=== PATIENT | female | born 1975 | race Hispanic/Latino ===

== ENCOUNTER 2023-08-14 15:59 | Emergency (ER) | payer OTHER ==
[~2023-08-14] VITALS: Ht 167.6 cm; Wt 150.2 kg
[2023-08-14] MEDS ORDERED: BACI500O8 TOP (20:11)
[2023-08-14] MEDS ORDERED: AMOX875T2 PO (20:11)
[2023-08-14 20:23] VITALS: BP 145/66; TEMP 98; O2SAT 96
[2023-08-14] MEDS: AUGMENTIN 875 MG TAB PO ONE (20:23)
== END 2023-08-14 20:27 | disposition home or self-care (01) ==
LOC: M ED 15:59
DX: H60.11 Cellulitis of right external ear (principal); H66.91 Otitis media, unspecified, right ear

== ENCOUNTER 2023-10-25 10:35 | Emergency (ER) | payer OTHER ==
[~2023-10-25] VITALS: Ht 170.2 cm; Wt 151.0 kg
[~2023-10-25 10:35] MED LIST: AMOX875T2 PO; BACI500O8 TOP
[2023-10-25 10:36] VITALS: BP 136/72; TEMP 97.4; O2SAT 97
[2023-10-25] MEDS: CYCLOBENZAPRINE 10MG TABLET PO ONE (11:42)
[2023-10-25] MEDS: ACETAMINOPHEN 500 MG TAB PO ONE (11:43)
== END 2023-10-25 11:49 | disposition home or self-care (01) ==
LOC: M ED 10:35
DX: S16.1XXA Strain of muscle, fascia and tendon at neck level, initial encounter (principal); Y92.9 Unspecified place or not applicable; Y93.9 Activity, unspecified; Y99.9 Unspecified external cause status; J45.909 Unspecified asthma, uncomplicated; Z87.891 Personal history of nicotine dependence